=== PATIENT | female | born 1935 | race Caucasian/White ===

== ENCOUNTER 2017-11-11 07:32 | Emergency (ER) | payer OTHER, MEDICARE ==
[~2017-11-11] VITALS: Ht 167.6 cm; Wt 74.8 kg
[2017-11-11 07:36] VITALS: Ht 167.6 cm; Wt 74.8 kg
[2017-11-11 08:47] LABS: CALCIUM 8.7 mg/dL (8.5-10.1); CARBON DIOXIDE 23.9 mmol/L (21-32); CHLORIDE SERUM 106 mmol/L (98-107); CREATININE SERUM 0.8 mg/dL (0.6-1.0); GLUCOSE SERUM 138 mg/dL (74-106); POTASSIUM SERUM 4.2 mmol/L (3.5-5.1); SODIUM SERUM 140 mmol/L (136-145)
[2017-11-11 08:50] LABS: BASOPHIL % 0.4 % (0-2); PLATELET COUNT 170 x10^3mcL (130-400); RED CELL DISTRIBUTION WIDTH 13.5 % (11.5-14.5)
[2017-11-11 09:50] VITALS: BP 140/74
== END 2017-11-11 10:02 | disposition home or self-care (01) ==
LOC: ED 07:32
PROVIDERS: Specialist
DX: S01.01XA Laceration without foreign body of scalp, initial encounter (principal); F03.90 Unspecified dementia, unspecified severity, without behavioral disturbance, psychotic disturbance, mood disturbance, and anxiety; I10 Essential (primary) hypertension; Y93.89 Activity, other specified; Y92.89 Other specified places as the place of occurrence of the external cause; Y99.8 Other external cause status; W19.XXXA Unspecified fall, initial encounter
CPT/HCPCS: 36415

== ENCOUNTER 2020-02-26 13:47 | Emergency (ER) | payer OTHER, MEDICARE ==
[~2020-02-26] VITALS: Ht 152.4 cm; Wt 47.6 kg
[2020-02-26 14:01] VITALS: BP 112/48; Ht 152.4 cm; Wt 47.6 kg
== END 2020-02-26 16:20 | disposition home or self-care (01) ==
LOC: ED 13:47
DX: F03.90 Unspecified dementia, unspecified severity, without behavioral disturbance, psychotic disturbance, mood disturbance, and anxiety (principal); S00.81XA Abrasion of other part of head, initial encounter; I10 Essential (primary) hypertension; W05.0XXA Fall from non-moving wheelchair, initial encounter; Y93.89 Activity, other specified; Y92.89 Other specified places as the place of occurrence of the external cause; Y99.8 Other external cause status
CPT/HCPCS: 90715